=== PATIENT | male | born 1970 | race Caucasian/White ===

== ENCOUNTER 2020-11-09 12:08 | Emergency (ER) | payer SELFPAY ==
[~2020-11-09] VITALS: Ht 167.6 cm; Wt 82.0 kg
[2020-11-09] MEDS ORDERED: LIDOCAINE 1%-EPI 1:100K, 20ML ONE (12:58)
[2020-11-09] MEDS ORDERED: DIPH,PERTUSS(ACELL),TET VAC/PF 0.5 ML IM-VACC ONE (13:00)
[2020-11-09] MEDS ORDERED: CEFTRIAXONE 2 GM in DEXTROSE 5% 50 ML IVPB ONE (13:00)
[2020-11-09] MEDS ORDERED: SODIUM CHLORIDE FLUSH 10ML SYR IVF ONE (13:00)
[2020-11-09] MEDS ORDERED: MORPHINE SULFATE 4 MG/ML, 1ML IVPush PRN (13:00)
[2020-11-09] MEDS ORDERED: ONDANSETRON 2MG/ML, 2ML IVPush ONE (13:00)
[2020-11-09] MEDS ORDERED: LIDOCAINE 1%-EPI 1:100K, 20ML SQ ONE (13:00)
--- NOTE | 2020-11-09 13:30 | NUR ---
PT MEDICATED PER ORDERS. MIYA SIMPSON AT BEDSIDE FOR LAC SUTURE.
[2020-11-09] MEDS ORDERED: BACITRACIN ZINC OINT 500U/GM, 0.9 GM ONE (13:54)
--- NOTE | 2020-11-09 14:40 | NUR ---
PT OFFERED CRUTCHES FOR D/C, PT REFUSED. DRSG PLACED ON SUTURED WD BY JERO CASTRO, BART CDI AT D/C. PT VERBALIZED UNDERSTANDING OF D/C INSTRUCTIONS, PT WITH STEADY GAIT UPON D/C.
[2020-11-09 14:41] VITALS: BP 141/78
== END 2020-11-09 14:43 | disposition home or self-care (01) ==
LOC: ED 14:29
DX: S71.111A Laceration without foreign body, right thigh, initial encounter (principal); X58.XXXA Exposure to other specified factors, initial encounter; Y93.89 Activity, other specified; Y92.89 Other specified places as the place of occurrence of the external cause; Y99.8 Other external cause status
CPT/HCPCS: 12035; 73552; 90471; 90715; 96365; 96366; 96375; 99284; J0696; J2270; J2405